=== PATIENT | male | born 1965 | race Caucasian/White ===

== ENCOUNTER 2017-04-13 10:34 | Emergency (ER) | payer OTHER ==
--- NOTE | 2017-04-13 10:48 | DR.GENAD ---
HPI - HPI Comment HPI Comment: PATIENT NOT SLEEPING WELL. DEPRESS. NO FEVER OR CHEST PAIN. DENIES NAUSEA, VOMITING OR DYSURIA. - Complaint/Symptoms Chief Complaint Doctors Comments: NEED HELP. NOT TAKING MEDICATION FOR BIPOLAR DISORDER. HAVING DELUSIONS AND PARANOIA. HE IS AGGITATED. NO SUICIDAL IDEATION. - Nurses notes reviewed Nurses Notes Review: Yes - Source History Provided: Patient, Law Enforcement - Mode of Arrival Mode of Arrival: Wheelchair - Timing Came on: Gradually - Duration Duration: Constant Duration: Days - Severity Severity: Moderate PMH - PMH Past Medical History: Anxiety, Depression, Schizophrenia Past Surgical History: Yes Surgical History: Cholecystectomy, Ortho Surgery - Family History Family Medical History: Hypertension - Social History Do you use any recreational Drugs:: No ROS - Review of Systems Constitutional: No Symptoms Reported Eyes: No Symptoms Reported ENTM: No Symptoms Reported Respiratoy: No Symptoms Reported Cardiovascular: No Symptoms Reported Gastrointestinal/Abdominal: No Symptoms Reported Genitourinary: No Symptoms Reported Neurological: No Symptoms Reported Musculoskeletal: No Symptoms Reported Integumentary: No Symptoms Reported Hematologic/Lymphatic: No Symptoms Reported Endocrine: No Symptoms Reported Psychiatric: Depression, Other (DELUTIONS, PARANOIA.) All Other Systems: Reviewed and Negative PE - Vital Signs Vitals: Temperature 98.9 F Pulse Rate 100 Respiratory Rate 16 Blood Pressure [Right Radial 144/90 Artery] Blood Pressure 147/63 O2 Sat by Pulse Oximetry 99 - General Limitations: No Limitations General Appearance: Alert - Head Head Exam: Normal Inspection - Eyes Eye exam: Normal Appearance - ENT ENT Exam: Normal External Ear Exam External Ear Exam: Normal External Inspection TM/Canal Exam: Bilateral Normal Nose Exam: Normal Nose Exam Mouth Exam: Normal Inspection Throat Exam: Normal Inspection - Neck Neck Exam: Trachea Midline - Chest Chest Inspection: Symmetric Chest Wall Rise - Respiratory Respiratory Exam: Normal Lung Sounds Bilat Respiratory Exam: Bilateral Clear to Auscultation - Cardiovascular Cardiovascular Exam: Regular Rate, Normal Rhythm, Normal Heart Sounds - Abdominal Exam Abdominal Exam: Normal Bowel Sounds, Soft. negative: Tenderness - Extremities Extremities Exam: Normal Inspection - Back Back Exam: Normal Inspection - Neurologic Neurological Exam: Alert, Oriented X3 - Psychiatric Psychiatric Exam: Anxious, Other (DELUTION, PARAOIA) - Skin Skin Exam: Normal Color MDM - Differential Diagnosis Differential Diagnosis: DELUTIONS, PARANOIA, BIPOLAR DISORDE Course - Treatment Treatment: SEE MAU. - Consultation Consultation Comments: PATIENT ACCEPTED FOR TRANSFER BY [facility] [place]. - Education/Counseling Education/Counseling: Patient ROR - Labs Reviewed Laboratory Results Reviewed?: Yes Result Diagrams: 04/13/17 11:00 04/13/17 11:00 Laboratory: WBC 12.2 X10^3/uL (3.6-10.0) H 04/13/17 11:00 RBC 4.61 X10^6/uL (4.7-6.0) L 04/13/17 11:00 Hgb 14.0 g/dL (13.5-18.0) 04/13/17 11:00 Hct 41.5 % (42.0-54.0) L 04/13/17 11:00 MCV 90.0 fL (80.0-100.0) 04/13/17 11:00 MCH 30.4 pg (27.0-34.0) 04/13/17 11:00 MCHC 33.8 g/dL (33.0-35.0) 04/13/17 11:00 RDW 14.6 % (11.6-16.5) 04/13/17 11:00 Plt Count 233 X10^3/uL (150.0-450.0) 04/13/17 11:00 MPV 8.5 fL (7.4-11.0) 04/13/17 11:00 Neut % 82.0 % (42.0-75.0) H 04/13/17 11:00 Lymph % 8.9 % (21.0-51.0) L 04/13/17 11:00 [place] % 8.3 % (0.0-13.0) 04/13/17 11:00 Eos % 0.3 % (0.9-2.9) L 04/13/17 11:00 Baso % 0.5 % (0.2-1.0) 04/13/17 11:00 Neut # 10.0 x10^3/uL (2.2-4.8) H 04/13/17 11:00 Lymph # 1.1 X10^3/uL (1.3-2.9) L 04/13/17 11:00 [place]er # 1.0 x10^3/uL (0.3-0.8) H 04/13/17 11:00 Eos # 0.0 x10^3/uL (0.0-0.2) 04/13/17 11:00 Baso # 0.1 X10^3/uL (0.0-0.1) 04/13/17 11:00 Absolute Nucleated RBC 0.0 /100WBC 04/13/17 11:00 Sodium 145 mmol/L (136-145) 04/13/17 11:00 Corrected Sodium TNP 04/13/17 11:00 Potassium 4.2 mmol/L (3.5-5.1) 04/13/17 11:00 Chloride 108 mmol/L (98-107) H 04/13/17 11:00 Carbon Dioxide 24.9 mmol/L (21-32) 04/13/17 11:00 BUN 29 mg/dL (7-18) H 04/13/17 11:00 Creatinine 1.25 mg/dL (0.70-1.30) 04/13/17 11:00 Est GFR (MDRD) Af Amer > 60 (>60) 04/13/17 11:00 Est GFR (MDRD) Non-Af > 60 (>60) 04/13/17 11:00 Glucose 65 mg/dL (65-99) 04/13/17 11:00 Calcium 8.7 mg/dL (8.5-10.1) 04/13/17 11:00 Corrected Calcium TNP 04/13/17 11:00 Total Bilirubin 1.10 mg/dL (0.2-1.0) H 04/13/17 11:00 AST 167 Units/L (15-37) H 04/13/17 11:00 ALT 122 Units/L (12-78) H 04/13/17 11:00 Alkaline Phosphatase 67 Units/L (46-116) 04/13/17 11:00 Total Protein 6.9 g/dL (6.4-8.2) 04/13/17 11:00 Albumin 3.8 g/dL (3.4-5.0) 04/13/17 11:00 Globulin 3.1 g/dL (2.5-4.5) 04/13/17 11:00 Albumin/Globulin Ratio 1.2 Ratio (1.1-2.1) 04/13/17 11:00 Specimen Type Clean catch urine 04/13/17 11:22 Urine Color Yellow (YELLOW) 04/13/17 11:22 Urine Appearance Clear (CLEAR) 04/13/17 11:22 Urine pH 5.0 (5.0 - 8.0) 04/13/17 11:22 Ur Specific [place] 1.025 (1.000-1.030) 04/13/17 11:22 Urine Protein 2+ (NEGATIVE) 04/13/17 11:22 Urine Glucose (UA) 1+ (NEGATIVE) 04/13/17 11:22 Urine Ketones 4+ (NEGATIVE) 04/13/17 11:22 Urine Occult Blood 2+ (NEGATIVE) 04/13/17 11:22 Urine Nitrite Negative (NEGATIVE) 04/13/17 11:22 Urine Bilirubin Negative (NEGATIVE) 04/13/17 11:22 Urine Urobilinogen Normal (NORMAL) 04/13/17 11:22 Ur Leukocyte Esterase Negative (NEGATIVE) 04/13/17 11:22 Urine RBC 0-3 /HPF (NEGATIVE) 04/13/17 11:22 Urine WBC 0-3 /HPF (NEGATIVE) 04/13/17 11:22 Ur Squamous Epith Cells Few /HPF (NEGATIVE) 04/13/17 11:22 Urine Bacteria Trace /HPF (NEGATIVE) 04/13/17 11:22 Hyaline Casts Few /LPF (NEGATIVE) 04/13/17 11:22 Urine Mucus Few /HPF (NEGATIVE) 04/13/17 11:22 Ur Culture Indicated? No/not indicated 04/13/17 11:22 Salicylates < 2.8 mg/dL (2.8-20) L 04/13/17 11:00 Urine Opiates Screen Negative (NEG=<300) 04/13/17 11:22 Urine Methadone Screen Negative (NEG=<300) 04/13/17 11:22 Acetaminophen 1.3 ug/mL (10-30) L 04/13/17 11:00 Ur Barbiturates Screen Negative (NEG=<200) 04/13/17 11:22 Ur Phencyclidine Scrn Negative (NEG=<25) 04/13/17 11:22 Ur Amphetamines Screen Negative (NEG=<1000) 04/13/17 11:22 U Benzodiazepines Scrn Negative (NEG=<200) 04/13/17 11:22 Urine Cocaine Screen Negative (NEG=<300) 04/13/17 11:22 U Marijuana (THC) Screen Negative (NEG=<50) 04/13/17 11:22 Ethyl Alcohol mg/dL < 3 mg/dL (0-19.9) 04/13/17 11:00 - EKG Rhythm: NSR (EKG NOTED.) - Diagnosis Discharge Problem: Bipolar 1 disorder, depressed, severe, Delusion, Paranoia - Discharge Plan Disposition: 02 XFER [facility] Condition: Stable - Follow ups/Referrals Follow ups/Referrals: NFD,None [Primary Care Provider] - 3 days - Instructions
[2017-04-13 10:52] VITALS: BP 147/63; BMI 33.2
[2017-04-13 11:06] LABS: BASOPHILS # (AUTO) 0.1 X10^3/uL (0.0-0.1); BASOPHILS % (AUTO) 0.5 % (0.2-1.0); EOSINOPHILS % (AUTO) 0.3 % (0.9-2.9); HEMATOCRIT 41.5 % (42.0-54.0); LYMPHOCYTES # (AUTO) 1.1 X10^3/uL (1.3-2.9); LYMPHOCYTES % (AUTO) 8.9 % (21.0-51.0); MEAN CORPUSCULAR HEMOGLOBIN 30.4 pg (27.0-34.0); MEAN CORPUSCULAR HGB CONC 33.8 g/dL (33.0-35.0); MEAN PLATELET VOLUME 8.5 fL (7.4-11.0); MONOCYTES % (AUTO) 8.3 % (0.0-13.0); PLATELET COUNT 233 X10^3/uL (150.0-450.0); RED BLOOD COUNT 4.61 X10^6/uL (4.7-6.0); RED CELL DISTRIBUTION WIDTH 14.6 % (11.6-16.5); WHITE BLOOD COUNT 12.2 X10^3/uL (3.6-10.0)
[2017-04-13 11:22] LABS: ALANINE AMINOTRANSFERASE 122 Units/L (12-78); ALBUMIN 3.8 g/dL (3.4-5.0); ALKALINE PHOSPHATASE 67 Units/L (46-116); ASPARTATE AMINO TRANSFERASE 167 Units/L (15-37); BLOOD ALCOHOL < 3 mg/dL (0-19.9); BLOOD UREA NITROGEN 29 mg/dL (7-18); CALCIUM 8.7 mg/dL (8.5-10.1); CARBON DIOXIDE 24.9 mmol/L (21-32); CHLORIDE 108 mmol/L (98-107); CREATININE 1.25 mg/dL (0.70-1.30); GLUCOSE 65 mg/dL (65-99); SODIUM 145 mmol/L (136-145); TOTAL PROTEIN 6.9 g/dL (6.4-8.2); eGFR BLACK RACES > 60 (>60); eGFR NON BLACK RACES > 60 (>60)
[2017-04-13 11:37] LABS: BILIRUBIN,URINE NEGATIVE (NEGATIVE); BLOOD/HEMOGLOBIN,URINE 2+ (NEGATIVE); GLUCOSE, URINE 1+ (NEGATIVE); KETONES,URINE 4+ (NEGATIVE); LEUKOCYTE ESTERASE ,URINE NEGATIVE (NEGATIVE); NITRITES,URINE NEGATIVE (NEGATIVE); PROTEIN,URINE 2+ (NEGATIVE); UROBILINOGEN,URINE NORMAL (NORMAL)
[2017-04-13 11:43] LABS: ACETAMINOPHEN 1.3 ug/mL (10-30); SALICYLATE < 2.8 mg/dL (2.8-20)
[2017-04-13 11:44] LABS: APPEARANCE,URINE CLEAR (CLEAR); BACTERIA,URINE TRACE /HPF (NEGATIVE); COLOR,URINE YELLOW (YELLOW); RBC,URINE 0-3 /HPF (NEGATIVE); SQUAMOUS EPITHELIAL CELL,UR FEW /HPF (NEGATIVE)
[2017-04-13 11:45] LABS: HYALINE CASTS, URINE FEW /LPF (NEGATIVE); MUCUS,URINE FEW /HPF (NEGATIVE)
[2017-04-14] MEDS ORDERED: NICODERM PATCH 21 MG/24 HR TD SCH (09:00)
== END 2017-04-13 14:24 | disposition short-term general hospital (02) ==
LOC: ER 10:37
DX: F31.89 Other bipolar disorder (principal); F32.2 Major depressive disorder, single episode, severe without psychotic features; F22 Delusional disorders
CPT/HCPCS: 36415; 80053; 80307; 80320; 81001; 85025; 93005; 93010; 99285; G0434; G6038; G6039; G6040

== ENCOUNTER → 2017-05-06 | Outpatient (CLI) | payer OTHER ==
[2017-04-13 10:52] VITALS: BP 147/63
--- NOTE | 2017-05-06 14:48 | VAS ---
HISTORY: Bilateral lower extremity edema. Study: Bilateral lower extremity ultrasound. Comparison: Right lower extremity ultrasound dated January 02, 2014. Head TECHNIQUE: Multiple rao scale and color flow Doppler images of the deep venous system were obtained of the right and left lower extremity. FINDINGS: The deep venous system of the right and left lower extremities were evaluated from the level of the c ommon femoral vein through the popliteal vein. Diminished flow within the mid and distal right super ficial femoral vein. Otherwise, normal color flow and augmentation can be observed. In addition, nor mal compression is seen throughout the deep venous system. IMPRESSION: Diminished flow within the right distal lower extremity as above. However, the bilateral lower extremities are otherwise negative for deep venous thrombosis. If clinically concerned, conside r repeating right lower extremity ultrasound in 3-5 days. Reported By:
== END | disposition home or self-care (01) | DRG 948 ==
LOC: RAD 12:37
PROVIDERS: ATTEND Obstetrics & Gynecology Obstetrics
DX: R60.0 Localized edema (principal)
CPT/HCPCS: 93970

== ENCOUNTER 2017-05-08 09:12 | Emergency (ER) | payer OTHER ==
[2017-05-08 09:21] VITALS: BMI 32.6
--- NOTE | 2017-05-08 09:37 | DR.GENAD ---
HPI - HPI Comment HPI Comment: PATIENT IS TAKING HIS MEDICATIONS. HE IS HAVING FLIGHT OF IDEAS AND IS PANOID. HE IS HAVING DELUTIONS. NO FEVER, PAIN OR URI SYMTOMS. DENIES SUICIDAL OR HOMICIDAL IDEATIONS. - Complaint/Symptoms Chief Complaint Doctors Comments: PATIENT IS PARANOID AT HOME. - Nurses notes reviewed Nurses Notes Review: Yes - Source History Provided: Patient, Law Enforcement - Mode of Arrival Mode of Arrival: Ambulatory - Timing Came on: Suddenly - Duration Duration: Constant Duration: Days - Severity Severity: Moderate PMH - PMH Past Medical History: Anxiety, Depression, Schizophrenia Past Surgical History: Yes Surgical History: Cholecystectomy, Ortho Surgery - Family History Family Medical History: Hypertension - Social History Do you use any recreational Drugs:: No ROS - Review of Systems Constitutional: No Symptoms Reported. negative: Chills, Fever Eyes: No Symptoms Reported. negative: Eye Pain, Discharge ENTM: No Symptoms Reported, Nose Congestion. negative: Ear Pain, Nose Discharge , Throat Pain Respiratoy: No Symptoms Reported. negative: Productive Cough, Non-Productive Cough, Short of Breath, Wheezing Cardiovascular: Edema (RT LED SWELLING) Gastrointestinal/Abdominal: No Symptoms Reported. negative: Abdominal Pain, Nausea, Vomiting Genitourinary: No Symptoms Reported Neurological: No Symptoms Reported Musculoskeletal: Right, Leg Integumentary: Change in Color Hematologic/Lymphatic: No Symptoms Reported Endocrine: No Symptoms Reported Psychiatric: Other (paranoia) All Other Systems: Reviewed and Negative PE - Vital Signs Vitals: Temperature 98.7 F Pulse Rate [Right Brachial] 93 Pulse Rate 111 Respiratory Rate 16 Blood Pressure [Right Radial 155/88 Artery] Blood Pressure 138/71 O2 Sat by Pulse Oximetry 100 - General Limitations: No Limitations General Appearance: Alert - Head Head Exam: Normal Inspection - Eyes Eye exam: Normal Appearance - ENT ENT Exam: Normal External Ear Exam External Ear Exam: Normal External Inspection TM/Canal Exam: Bilateral Normal Nose Exam: Normal Nose Exam Mouth Exam: Normal Inspection Throat Exam: Normal Inspection - Neck Neck Exam: Trachea Midline - Chest Chest Inspection: Symmetric Chest Wall Rise - Respiratory Respiratory Exam: Normal Lung Sounds Bilat Respiratory Exam: Bilateral Clear to Auscultation - Cardiovascular Cardiovascular Exam: Regular Rate, Normal Rhythm, Normal Heart Sounds - Abdominal Exam Abdominal Exam: Normal Bowel Sounds, Soft. negative: Tenderness - Extremities Extremities Exam: Tenderness (RIGHT LEG SLIGHTLY SWOLLEN AND RED.) - Back Back Exam: Normal Inspection - Neurologic Neurological Exam: Alert, Oriented X3, CN II-XII Intact, Normal Gait, Reflexes Normal, Other (paranoia). negative: Motor Sensory Deficit - Psychiatric Psychiatric Exam: Anxious - Skin Skin Exam: Erythema (LEFT LEG WITH SWELLING.) MDM - Differential Diagnosis Differential Diagnosis: PARANOID SCHIZOPHRENIA, LEFT LEG CELLULITIS Course - Treatment Treatment: SEE ORDERS - Consultation Consultation Comments: PATIENT ACCEPTED FOR TRANSFER BY [facility]. - Education/Counseling Education/Counseling: Patient Educated On: Diagnosis ROR - Labs Reviewed Laboratory Results Reviewed?: Yes Result Diagrams: 05/08/17 09:37 05/08/17 09:37 Laboratory: WBC 5.0 X10^3/uL (3.6-10.0) 05/08/17 09:37 RBC 4.29 X10^6/uL (4.7-6.0) L 05/08/17 09:37 Hgb 13.2 g/dL (13.5-18.0) L 05/08/17 09:37 Hct 39.0 % (42.0-54.0) L 05/08/17 09:37 MCV 90.8 fL (80.0-100.0) 05/08/17 09:37 MCH 30.8 pg (27.0-34.0) 05/08/17 09:37 MCHC 34.0 g/dL (33.0-35.0) 05/08/17 09:37 RDW 15.1 % (11.6-16.5) 05/08/17 09:37 Plt Count 176 X10^3/uL (150.0-450.0) 05/08/17 09:37 MPV 8.5 fL (7.4-11.0) 05/08/17 09:37 Neut % 62.4 % (42.0-75.0) 05/08/17 09:37 Lymph % 18.8 % (21.0-51.0) L 05/08/17 09:37 Price % 14.6 % (0.0-13.0) H 05/08/17 09:37 Eos % 3.3 % (0.9-2.9) H 05/08/17 09:37 Baso % 0.9 % (0.2-1.0) 05/08/17 09:37 Neut # 3.1 x10^3/uL (2.2-4.8) 05/08/17 09:37 Lymph # 0.9 X10^3/uL (1.3-2.9) L 05/08/17 09:37 Price # 0.7 x10^3/uL (0.3-0.8) 05/08/17 09:37 Eos # 0.2 x10^3/uL (0.0-0.2) 05/08/17 09:37 Baso # 0.0 X10^3/uL (0.0-0.1) 05/08/17 09:37 Absolute Nucleated RBC 0.0 /100WBC 05/08/17 09:37 D-Dimer 219 ng/mL (0-400) 05/08/17 09:37 Sodium 139 mmol/L (136-145) 05/08/17 09:37 Corrected Sodium TNP 05/08/17 09:37 Potassium 4.1 mmol/L (3.5-5.1) 05/08/17 09:37 Chloride 107 mmol/L (98-107) 05/08/17 09:37 Carbon Dioxide 23.6 mmol/L (21-32) 05/08/17 09:37 BUN 15 mg/dL (7-18) 05/08/17 09:37 Creatinine 1.02 mg/dL (0.70-1.30) 05/08/17 09:37 Est GFR (MDRD) Af Amer > 60 (>60) 05/08/17 09:37 Est GFR (MDRD) Non-Af > 60 (>60) 05/08/17 09:37 Glucose 98 mg/dL (65-99) 05/08/17 09:37 Calcium 9.3 mg/dL (8.5-10.1) 05/08/17 09:37 Corrected Calcium TNP 05/08/17 09:37 Total Bilirubin 0.30 mg/dL (0.2-1.0) 05/08/17 09:37 AST 22 Units/L (15-37) 05/08/17 09:37 ALT 32 Units/L (12-78) 05/08/17 09:37 Alkaline Phosphatase 74 Units/L (46-116) 05/08/17 09:37 Total Protein 6.7 g/dL (6.4-8.2) 05/08/17 09:37 Albumin 3.5 g/dL (3.4-5.0) 05/08/17 09:37 Globulin 3.2 g/dL (2.5-4.5) 05/08/17 09:37 Albumin/Globulin Ratio 1.1 Ratio (1.1-2.1) 05/08/17 09:37 Specimen Type Clean catch urine 05/08/17 09:57 Urine Color Yellow (YELLOW) 05/08/17 09:57 Urine Appearance Clear (CLEAR) 05/08/17 09:57 Urine pH 6.0 (5.0 - 8.0) 05/08/17 09:57 Ur Specific [place] 1.025 (1.000-1.030) 05/08/17 09:57 Urine Protein 1+ (NEGATIVE) 05/08/17 09:57 Urine Glucose (UA) 1+ (NEGATIVE) 05/08/17 09:57 Urine Ketones Negative (NEGATIVE) 05/08/17 09:57 Urine Occult Blood 1+ (NEGATIVE) 05/08/17 09:57 Urine Nitrite Negative (NEGATIVE) 05/08/17 09:57 Urine Bilirubin Negative (NEGATIVE) 05/08/17 09:57 Urine Urobilinogen Normal (NORMAL) 05/08/17 09:57 Ur Leukocyte Esterase 1+ (NEGATIVE) 05/08/17 09:57 Urine RBC 0 - 3 /HPF (NEGATIVE) 05/08/17 09:57 Urine WBC 0 - 3 /HPF (NEGATIVE) 05/08/17 09:57 Ur Squamous Epith Cells Rare /HPF (NEGATIVE) 05/08/17 09:57 Amorphous Sediment 1+ /HPF (NEGATIVE) 05/08/17 09:57 Urine Bacteria Negative /HPF (NEGATIVE) 05/08/17 09:57 Urine Mucus Moderate /HPF (NEGATIVE) 05/08/17 09:57 Ur Culture Indicated? No/not indicated 05/08/17 09:57 Salicylates 3.2 mg/dL (2.8-20) 05/08/17 09:37 Urine Opiates Screen Negative (NEG=<300) 05/08/17 09:57 Urine Methadone Screen Negative (NEG=<300) 05/08/17 09:57 Acetaminophen 0.0 ug/mL (10-30) L 05/08/17 09:37 Ur Barbiturates Screen Negative (NEG=<200) 05/08/17 09:57 Ur Phencyclidine Scrn Negative (NEG=<25) 05/08/17 09:57 Ur Amphetamines Screen Negative (NEG=<1000) 05/08/17 09:57 U Benzodiazepines Scrn Negative (NEG=<200) 05/08/17 09:57 Urine Cocaine Screen Negative (NEG=<300) 05/08/17 09:57 U Marijuana (THC) Screen Negative (NEG=<50) 05/08/17 09:57 Ethyl Alcohol mg/dL < 3 mg/dL (0-19.9) 05/08/17 09:37 - EKG Rhythm: NSR (EKG NOTED) - Diagnosis Discharge Problem: Paranoid schizophrenia, Cellulitis of right leg, Paranoid delusion - Discharge Plan Disposition: 65 XFER [facility] Condition: Stable - Follow ups/Referrals Follow ups/Referrals: NFD,None [Primary Care Provider] - 3 days - Instructions Instructions: Paranoia, Schizophrenia, Cellulitis, Adult, [id number] Additional Instructions: TO [facility] FOR FURTHER EVALUATION
[2017-05-08 09:48] LABS: BASOPHILS % (AUTO) 0.9 % (0.2-1.0); EOSINOPHILS # (AUTO) 0.2 x10^3/uL (0.0-0.2); EOSINOPHILS % (AUTO) 3.3 % (0.9-2.9); HEMOGLOBIN 13.2 g/dL (13.5-18.0); LYMPHOCYTES # (AUTO) 0.9 X10^3/uL (1.3-2.9); LYMPHOCYTES % (AUTO) 18.8 % (21.0-51.0); MEAN CORPUSCULAR HEMOGLOBIN 30.8 pg (27.0-34.0); MEAN CORPUSCULAR VOLUME 90.8 fL (80.0-100.0); MEAN PLATELET VOLUME 8.5 fL (7.4-11.0); MONOCYTES # (AUTO) 0.7 x10^3/uL (0.3-0.8); MONOCYTES % (AUTO) 14.6 % (0.0-13.0); NEUTROPHILS # (AUTO) 3.1 x10^3/uL (2.2-4.8); NEUTROPHILS % (AUTO) 62.4 % (42.0-75.0); PLATELET COUNT 176 X10^3/uL (150.0-450.0); RED BLOOD COUNT 4.29 X10^6/uL (4.7-6.0); RED CELL DISTRIBUTION WIDTH 15.1 % (11.6-16.5)
[2017-05-08 10:00] LABS: SALICYLATE 3.2 mg/dL (2.8-20)
[2017-05-08 10:05] LABS: ALANINE AMINOTRANSFERASE 32 Units/L (12-78); ALBUMIN 3.5 g/dL (3.4-5.0); ALKALINE PHOSPHATASE 74 Units/L (46-116); ASPARTATE AMINO TRANSFERASE 22 Units/L (15-37); BLOOD ALCOHOL < 3 mg/dL (0-19.9); BLOOD UREA NITROGEN 15 mg/dL (7-18); CALCIUM 9.3 mg/dL (8.5-10.1); CARBON DIOXIDE 23.6 mmol/L (21-32); CHLORIDE 107 mmol/L (98-107); CREATININE 1.02 mg/dL (0.70-1.30); SODIUM 139 mmol/L (136-145); TOTAL PROTEIN 6.7 g/dL (6.4-8.2); eGFR BLACK RACES > 60 (>60); eGFR NON BLACK RACES > 60 (>60)
[2017-05-08 10:36] LABS: BILIRUBIN,URINE NEGATIVE (NEGATIVE); BLOOD/HEMOGLOBIN,URINE 1+ (NEGATIVE); GLUCOSE, URINE 1+ (NEGATIVE); KETONES,URINE NEGATIVE (NEGATIVE); LEUKOCYTE ESTERASE ,URINE 1+ (NEGATIVE); NITRITES,URINE NEGATIVE (NEGATIVE); PROTEIN,URINE 1+ (NEGATIVE); UROBILINOGEN,URINE NORMAL (NORMAL)
[2017-05-08 10:39] LABS: APPEARANCE,URINE CLEAR (CLEAR); BACTERIA,URINE NEGATIVE /HPF (NEGATIVE); COLOR,URINE YELLOW (YELLOW); RBC,URINE 0 - 3 /HPF (NEGATIVE); SQUAMOUS EPITHELIAL CELL,UR RARE /HPF (NEGATIVE)
[2017-05-08 10:40] LABS: AMORPHOUS SEDIMENT,UR 1+ /HPF (NEGATIVE); MUCUS,URINE MODERATE /HPF (NEGATIVE)
[2017-05-08 14:02] VITALS: BP 155/88
[2017-05-08] MEDS ORDERED: MOTRIN TAB 600 MG PO ONE ×2 (14:50→14:52)
[2017-05-08] MEDS ORDERED: VIBRAMYCIN PO ONE ×2 (15:05→15:07)
[2017-05-08] MEDS ORDERED: HALDOL INJ IM ONE (15:10)
[2017-05-08] MEDS ORDERED: HALDOL INJ ONE (15:11)
== END 2017-05-08 15:58 ==
LOC: ER 09:23
DX: F20.0 Paranoid schizophrenia (principal); L03.115 Cellulitis of right lower limb; F22 Delusional disorders
CPT/HCPCS: 36415; 80053; 80307; 80320; 81001; 85025; 85378; 93005; 93010; 96372; 99285; G0434; G6038; G6039; G6040; J1630

== ENCOUNTER 2017-05-30 14:38 | Emergency (ER) | payer OTHER ==
[2017-05-30 14:46] VITALS: BP 134/93; BMI 33.2
[2017-05-30] MEDS ORDERED: HALDOL ONE (15:18)
[2017-05-30] MEDS ORDERED: HALDOL PO ONE ×2 (15:21→15:22)
[2017-05-30 15:27] LABS: BASOPHILS # (AUTO) 0.2 X10^3/uL (0.0-0.1); BASOPHILS % (AUTO) 1.8 % (0.2-1.0); EOSINOPHILS # (AUTO) 0.2 x10^3/uL (0.0-0.2); EOSINOPHILS % (AUTO) 1.9 % (0.9-2.9); HEMOGLOBIN 14.3 g/dL (13.5-18.0); LYMPHOCYTES % (AUTO) 17.4 % (21.0-51.0); MEAN CORPUSCULAR HEMOGLOBIN 31.1 pg (27.0-34.0); MEAN CORPUSCULAR VOLUME 91.4 fL (80.0-100.0); MEAN PLATELET VOLUME 9.2 fL (7.4-11.0); MONOCYTES # (AUTO) 0.9 x10^3/uL (0.3-0.8); MONOCYTES % (AUTO) 8.3 % (0.0-13.0); NEUTROPHILS % (AUTO) 70.6 % (42.0-75.0); PLATELET COUNT 206 X10^3/uL (150.0-450.0); RED CELL DISTRIBUTION WIDTH 15.5 % (11.6-16.5); WHITE BLOOD COUNT 11.3 X10^3/uL (3.6-10.0)
--- NOTE | 2017-05-30 15:37 | DR.GENAD ---
HPI - Complaint/Symptoms Chief Complaint Doctors Comments: Patient presented to the ED for medical clearance due flight of idears but non homocidal and non suicidal. Chief Complaint:: [place] .... PT WAS F[place] AND TOLD [facility] TO TRANSPORT PT TO ED FOR MENTAL HEALTH .. Self Treatment fo Chief Complaint: PT IS SHAKING .. AND HE TOLD EMS HE WANTS TO GO TO [place],,, PT DENIES HEARING OR SEEING THINGS, PT DENIES HOMICIDAL OR SUICIDAL IDEATIONS ,,,,, - Source History Provided: Patient, Law Enforcement - Mode of Arrival Mode of Arrival: Ambulatory - Timing Onset of Chief Complaint: 05/30/17 PMH - PMH Past Medical History: Yes Past Medical History: Anxiety, Depression, Schizophrenia Past Surgical History: Yes Surgical History: Cholecystectomy, Ortho Surgery - Family History History of Family Medical Conditions: Yes Family Medical History: Hypertension - Social History Does patient currently use any type of tobacco product: No Have you used tobacco products in the last 12 months: No Type of Tobacco Use: None Does any household member use tobacco: No Alcohol Use: None Do you use any recreational Drugs:: No Lives With: Family Lives Where: Home - infectious screening In the last 2 months have you had wt loss of >10#?: NO Have you had fever, night sweats or hemotysis?: No Have you traveled outside the country in the last 6 months?: No Isolation: Standard PE - Vital Signs Vitals: Temperature 98.7 F Pulse Rate 111 Respiratory Rate 18 Blood Pressure [Right Radial 155/88 Artery] Blood Pressure 134/93 O2 Sat by Pulse Oximetry 100 ROR - Labs Reviewed Result Diagrams: 05/30/17 15:08 05/30/17 15:08 Laboratory: WBC 11.3 X10^3/uL (3.6-10.0) H 05/30/17 15:08 RBC 4.60 X10^6/uL (4.7-6.0) L 05/30/17 15:08 Hgb 14.3 g/dL (13.5-18.0) 05/30/17 15:08 Hct 42.0 % (42.0-54.0) 05/30/17 15:08 MCV 91.4 fL (80.0-100.0) 05/30/17 15:08 MCH 31.1 pg (27.0-34.0) 05/30/17 15:08 MCHC 34.0 g/dL (33.0-35.0) 05/30/17 15:08 RDW 15.5 % (11.6-16.5) 05/30/17 15:08 Plt Count 206 X10^3/uL (150.0-450.0) 05/30/17 15:08 MPV 9.2 fL (7.4-11.0) 05/30/17 15:08 Neut % 70.6 % (42.0-75.0) 05/30/17 15:08 Lymph % 17.4 % (21.0-51.0) L 05/30/17 15:08 [place] % 8.3 % (0.0-13.0) 05/30/17 15:08 Eos % 1.9 % (0.9-2.9) 05/30/17 15:08 Baso % 1.8 % (0.2-1.0) H 05/30/17 15:08 Neut # 8.0 x10^3/uL (2.2-4.8) H 05/30/17 15:08 Lymph # 2.0 X10^3/uL (1.3-2.9) 05/30/17 15:08 [place] # 0.9 x10^3/uL (0.3-0.8) H 05/30/17 15:08 Eos # 0.2 x10^3/uL (0.0-0.2) 05/30/17 15:08 Baso # 0.2 X10^3/uL (0.0-0.1) H 05/30/17 15:08 Absolute Nucleated RBC 0.1 /100WBC 05/30/17 15:08 Sodium 140 mmol/L (136-145) 05/30/17 15:08 Corrected Sodium TNP 05/30/17 15:08 Potassium 4.1 mmol/L (3.5-5.1) 05/30/17 15:08 Chloride 104 mmol/L (98-107) 05/30/17 15:08 Carbon Dioxide 24.7 mmol/L (21-32) 05/30/17 15:08 BUN 15 mg/dL (7-18) 05/30/17 15:08 Creatinine 1.08 mg/dL (0.70-1.30) 05/30/17 15:08 Est GFR (MDRD) Af Amer > 60 (>60) 05/30/17 15:08 Est GFR (MDRD) Non-Af > 60 (>60) 05/30/17 15:08 Glucose 94 mg/dL (65-99) 05/30/17 15:08 Calcium 9.1 mg/dL (8.5-10.1) 05/30/17 15:08 Corrected Calcium TNP 05/30/17 15:08 Total Bilirubin 0.60 mg/dL (0.2-1.0) 05/30/17 15:08 AST 26 Units/L (15-37) 05/30/17 15:08 ALT 48 Units/L (12-78) 05/30/17 15:08 Alkaline Phosphatase 69 Units/L (46-116) 05/30/17 15:08 Total Protein 7.1 g/dL (6.4-8.2) 05/30/17 15:08 Albumin 3.8 g/dL (3.4-5.0) 05/30/17 15:08 Globulin 3.3 g/dL (2.5-4.5) 05/30/17 15:08 Albumin/Globulin Ratio 1.2 Ratio (1.1-2.1) 05/30/17 15:08 Specimen Type Clean catch urine 05/30/17 15:41 Urine Color Yellow (YELLOW) 05/30/17 15:41 Urine Appearance Hazy (CLEAR) 05/30/17 15:41 Urine pH 5.0 (5.0 - 8.0) 05/30/17 15:41 Ur Specific [place] 1.020 (1.000-1.030) 05/30/17 15:41 Urine Protein 1+ (NEGATIVE) 05/30/17 15:41 Urine Glucose (UA) Negative (NEGATIVE) 05/30/17 15:41 Urine Ketones 1+ (NEGATIVE) 05/30/17 15:41 Urine Occult Blood Negative (NEGATIVE) 05/30/17 15:41 Urine Nitrite Negative (NEGATIVE) 05/30/17 15:41 Urine Bilirubin Negative (NEGATIVE) 05/30/17 15:41 Urine Urobilinogen 1+ (NORMAL) 05/30/17 15:41 Ur Leukocyte Esterase 1+ (NEGATIVE) 05/30/17 15:41 Urine RBC 0 /HPF (NEGATIVE) 05/30/17 15:41 Urine WBC 0-2 /HPF (NEGATIVE) 05/30/17 15:41 Ur Squamous Epith Cells Negative /HPF (NEGATIVE) 05/30/17 15:41 Urine Bacteria Trace /HPF (NEGATIVE) 05/30/17 15:41 Ur Culture Indicated? No/not indicated 05/30/17 15:41 Salicylates < 2.8 mg/dL (2.8-20) L 05/30/17 15:08 Urine Opiates Screen Negative (NEG=<300) 05/30/17 15:41 Urine Methadone Screen Negative (NEG=<300) 05/30/17 15:41 Acetaminophen 0.0 ug/mL (10-30) L 05/30/17 15:08 Ur Barbiturates Screen Negative (NEG=<200) 05/30/17 15:41 Ur Phencyclidine Scrn Negative (NEG=<25) 05/30/17 15:41 Ur Amphetamines Screen Negative (NEG=<1000) 05/30/17 15:41 U Benzodiazepines Scrn Negative (NEG=<200) 05/30/17 15:41 Urine Cocaine Screen Negative (NEG=<300) 05/30/17 15:41 U Marijuana (THC) Screen Positive (NEG=<50) A 05/30/17 15:41 - Discharge Plan Condition: Stable - Follow ups/Referrals Follow ups/Referrals: NFD,None [Primary Care Provider] - 3 days - Instructions
[2017-05-30 15:41] LABS: ALANINE AMINOTRANSFERASE 48 Units/L (12-78); ALBUMIN 3.8 g/dL (3.4-5.0); ALKALINE PHOSPHATASE 69 Units/L (46-116); ASPARTATE AMINO TRANSFERASE 26 Units/L (15-37); BLOOD UREA NITROGEN 15 mg/dL (7-18); CALCIUM 9.1 mg/dL (8.5-10.1); CARBON DIOXIDE 24.7 mmol/L (21-32); CHLORIDE 104 mmol/L (98-107); CREATININE 1.08 mg/dL (0.70-1.30); SODIUM 140 mmol/L (136-145); TOTAL PROTEIN 7.1 g/dL (6.4-8.2); eGFR BLACK RACES > 60 (>60); eGFR NON BLACK RACES > 60 (>60)
[2017-05-30 15:51] LABS: BILIRUBIN,URINE NEGATIVE (NEGATIVE); BLOOD/HEMOGLOBIN,URINE NEGATIVE (NEGATIVE); GLUCOSE, URINE NEGATIVE (NEGATIVE); KETONES,URINE 1+ (NEGATIVE); LEUKOCYTE ESTERASE ,URINE 1+ (NEGATIVE); NITRITES,URINE NEGATIVE (NEGATIVE); PROTEIN,URINE 1+ (NEGATIVE); UROBILINOGEN,URINE 1+ (NORMAL)
[2017-05-30 15:59] LABS: APPEARANCE,URINE HAZY (CLEAR); BACTERIA,URINE TRACE /HPF (NEGATIVE); COLOR,URINE YELLOW (YELLOW); RBC,URINE 0 /HPF (NEGATIVE); SQUAMOUS EPITHELIAL CELL,UR NEGATIVE /HPF (NEGATIVE)
[2017-05-30 16:06] LABS: SALICYLATE < 2.8 mg/dL (2.8-20)
== END 2017-05-30 22:40 | disposition short-term general hospital (02) ==
LOC: ER 14:59
DX: Z00.8 Encounter for other general examination (principal)
CPT/HCPCS: 36415; 80053; 80307; 81001; 85025; 93005; 93010; 99285; G0434; G6038; G6039

== ENCOUNTER 2017-06-24 10:39 | Emergency (ER) | payer OTHER ==
--- NOTE | 2017-06-24 10:45 | DR.GENAD ---
HPI - Complaint/Symptoms Chief Complaint Doctors Comments: Patient was brought to the ED by a police or patrol park officer. He does not give specific reason as to the need for mental health placement. Patient and dad denies that he is a risk of harm to himself or others. Patient answers questions appropriately. He denies illecit drug abuse or use. He denies alcohol use. PMH - PMH Past Medical History: Anxiety, Depression, Schizophrenia Past Surgical History: Yes Surgical History: Cholecystectomy, Ortho Surgery - Family History Family Medical History: Hypertension - Social History Do you use any recreational Drugs:: No ROS - Review of Systems Eyes: No Symptoms Reported ENTM: No Symptoms Reported Respiratoy: No Symptoms Reported Cardiovascular: No Symptoms Reported Gastrointestinal/Abdominal: No Symptoms Reported Genitourinary: No Symptoms Reported Neurological: No Symptoms Reported Musculoskeletal: No Symptoms Reported Integumentary: No Symptoms Reported Hematologic/Lymphatic: No Symptoms Reported Endocrine: No Symptoms Reported Psychiatric: No Symptoms Reported All Other Systems: Reviewed and Negative PE - Vital Signs Vitals: Temperature 98.6 F Pulse Rate 99 Respiratory Rate 18 Blood Pressure [Right Radial 155/88 Artery] Blood Pressure 159/85 O2 Sat by Pulse Oximetry 100 - General General Appearance: Alert, In No Apparent Distress - Head Head Exam: Normal Inspection, Atraumatic - Eyes Eye exam: Normal Appearance, PERRL, EOMI - ENT ENT Exam: Normal Exam TM/Canal Exam: Bilateral Normal Nose Exam: Normal Nose Exam Mouth Exam: Normal Inspection Throat Exam: Normal Inspection - Neck Neck Exam: Normal Inspection, Full ROM - Chest Chest Inspection: Normal Inspection - Respiratory Respiratory Exam: Normal Lung Sounds Bilat Respiratory Exam: Bilateral Clear to Auscultation - Cardiovascular Cardiovascular Exam: Regular Rate, Normal Rhythm - Abdominal Exam Abdominal Exam: Normal Inspection, Normal Bowel Sounds Abdominal Tenderness: negative: RUQ, RLQ, LUQ, LLQ, Epigastrium, Suprapubic, Diffuse, Mild, Moderate, Severe, Other - Extremities Extremities Exam: Normal Inspection - Back Back Exam: Normal Inspection, Full ROM - Neurologic Neurological Exam: Alert, Oriented X3, CN II-XII Intact - Psychiatric Psychiatric Exam: Normal Affect, Normal Mood - Skin Skin Exam: Warm, Dry, Intact ROR - Labs Reviewed Result Diagrams: 06/24/17 10:49 06/24/17 10:49 Laboratory: WBC 9.9 X10^3/uL (3.6-10.0) 06/24/17 10:49 RBC 4.74 X10^6/uL (4.7-6.0) 06/24/17 10:49 Hgb 15.1 g/dL (13.5-18.0) 06/24/17 10:49 Hct 43.7 % (42.0-54.0) 06/24/17 10:49 MCV 92.1 fL (80.0-100.0) 06/24/17 10:49 MCH 31.9 pg (27.0-34.0) 06/24/17 10:49 MCHC 34.7 g/dL (33.0-35.0) 06/24/17 10:49 RDW 15.4 % (11.6-16.5) 06/24/17 10:49 Plt Count 229 X10^3/uL (150.0-450.0) 06/24/17 10:49 MPV 8.8 fL (7.4-11.0) 06/24/17 10:49 Neut % 55.9 % (42.0-75.0) 06/24/17 10:49 Lymph % 29.3 % (21.0-51.0) 06/24/17 10:49 [place] % 10.3 % (0.0-13.0) 06/24/17 10:49 Eos % 3.6 % (0.9-2.9) H 06/24/17 10:49 Baso % 0.9 % (0.2-1.0) 06/24/17 10:49 Neut # 5.5 x10^3/uL (2.2-4.8) H 06/24/17 10:49 Lymph # 2.9 X10^3/uL (1.3-2.9) 06/24/17 10:49 [place] # 1.0 x10^3/uL (0.3-0.8) H 06/24/17 10:49 Eos # 0.4 x10^3/uL (0.0-0.2) H 06/24/17 10:49 Baso # 0.1 X10^3/uL (0.0-0.1) 06/24/17 10:49 Absolute Nucleated RBC 0.0 /100WBC 06/24/17 10:49 Sodium 140 mmol/L (136-145) 06/24/17 10:49 Corrected Sodium TNP 06/24/17 10:49 Potassium 4.1 mmol/L (3.5-5.1) 06/24/17 10:49 Chloride 105 mmol/L (98-107) 06/24/17 10:49 Carbon Dioxide 26.1 mmol/L (21-32) 06/24/17 10:49 BUN 13 mg/dL (7-18) 06/24/17 10:49 Creatinine 0.96 mg/dL (0.70-1.30) 06/24/17 10:49 Est GFR (MDRD) Af Amer > 60 (>60) 06/24/17 10:49 Est GFR (MDRD) Non-Af > 60 (>60) 06/24/17 10:49 Glucose 91 mg/dL (65-99) 06/24/17 10:49 Calcium 9.1 mg/dL (8.5-10.1) 06/24/17 10:49 Corrected Calcium TNP 06/24/17 10:49 Total Bilirubin 0.60 mg/dL (0.2-1.0) 06/24/17 10:49 AST 56 Units/L (15-37) H 06/24/17 10:49 ALT 91 Units/L (12-78) H 06/24/17 10:49 Alkaline Phosphatase 70 Units/L (46-116) 06/24/17 10:49 Total Protein 7.2 g/dL (6.4-8.2) 06/24/17 10:49 Albumin 3.7 g/dL (3.4-5.0) 06/24/17 10:49 Globulin 3.5 g/dL (2.5-4.5) 06/24/17 10:49 Albumin/Globulin Ratio 1.1 Ratio (1.1-2.1) 06/24/17 10:49 Salicylates 4.4 mg/dL (2.8-20) 06/24/17 10:49 Acetaminophen 0.0 ug/mL (10-30) L 06/24/17 10:49 Ethyl Alcohol mg/dL < 3 mg/dL (0-19.9) 06/24/17 10:49 - Diagnosis Discharge Problem: Bipolar disorder Qualifiers: Active/Remission status: in remission of unspecified degree Qualified Code(s): F31.70 - Bipolar disorder, currently in remission, most recent episode unspecified - Discharge Plan Condition: Stable - Follow ups/Referrals Follow ups/Referrals: MARIA LUZ ALAMO [Primary Care Provider] - 3 days - Instructions
[2017-06-24 10:53] VITALS: BP 159/85; BMI 31.0
[2017-06-24 11:06] LABS: BASOPHILS # (AUTO) 0.1 X10^3/uL (0.0-0.1); BASOPHILS % (AUTO) 0.9 % (0.2-1.0); EOSINOPHILS # (AUTO) 0.4 x10^3/uL (0.0-0.2); EOSINOPHILS % (AUTO) 3.6 % (0.9-2.9); HEMATOCRIT 43.7 % (42.0-54.0); HEMOGLOBIN 15.1 g/dL (13.5-18.0); LYMPHOCYTES # (AUTO) 2.9 X10^3/uL (1.3-2.9); LYMPHOCYTES % (AUTO) 29.3 % (21.0-51.0); MEAN CORPUSCULAR HEMOGLOBIN 31.9 pg (27.0-34.0); MEAN CORPUSCULAR HGB CONC 34.7 g/dL (33.0-35.0); MEAN CORPUSCULAR VOLUME 92.1 fL (80.0-100.0); MEAN PLATELET VOLUME 8.8 fL (7.4-11.0); MONOCYTES % (AUTO) 10.3 % (0.0-13.0); NEUTROPHILS # (AUTO) 5.5 x10^3/uL (2.2-4.8); NEUTROPHILS % (AUTO) 55.9 % (42.0-75.0); PLATELET COUNT 229 X10^3/uL (150.0-450.0); RED BLOOD COUNT 4.74 X10^6/uL (4.7-6.0); RED CELL DISTRIBUTION WIDTH 15.4 % (11.6-16.5); WHITE BLOOD COUNT 9.9 X10^3/uL (3.6-10.0)
[2017-06-24 11:14] LABS: SALICYLATE 4.4 mg/dL (2.8-20)
[2017-06-24 11:15] LABS: ALANINE AMINOTRANSFERASE 91 Units/L (12-78); ALBUMIN 3.7 g/dL (3.4-5.0); ALKALINE PHOSPHATASE 70 Units/L (46-116); ASPARTATE AMINO TRANSFERASE 56 Units/L (15-37); BLOOD ALCOHOL < 3 mg/dL (0-19.9); BLOOD UREA NITROGEN 13 mg/dL (7-18); CALCIUM 9.1 mg/dL (8.5-10.1); CARBON DIOXIDE 26.1 mmol/L (21-32); CHLORIDE 105 mmol/L (98-107); CREATININE 0.96 mg/dL (0.70-1.30); SODIUM 140 mmol/L (136-145); TOTAL PROTEIN 7.2 g/dL (6.4-8.2); eGFR BLACK RACES > 60 (>60); eGFR NON BLACK RACES > 60 (>60)
== END 2017-06-24 12:20 | disposition home or self-care (01) ==
LOC: ER 11:12
DX: F31.70 Bipolar disorder, currently in remission, most recent episode unspecified (principal)
CPT/HCPCS: 36415; 80053; 80307; 80320; 85025; 93005; 93010; 99283; 99285; G6038; G6039; G6040

== ENCOUNTER → 2017-10-12 | Outpatient (CLI) | payer OTHER ==
[2017-10-12 13:14] LABS: BASOPHILS % (AUTO) 0.8 % (0.2-1.0); EOSINOPHILS # (AUTO) 0.3 x10^3/uL (0.0-0.2); HEMATOCRIT 45.7 % (42.0-54.0); HEMOGLOBIN 15.8 g/dL (13.5-18.0); LYMPHOCYTES % (AUTO) 33.5 % (21.0-51.0); MEAN CORPUSCULAR HEMOGLOBIN 32.1 pg (27.0-34.0); MEAN CORPUSCULAR HGB CONC 34.6 g/dL (33.0-35.0); MEAN CORPUSCULAR VOLUME 92.6 fL (80.0-100.0); MEAN PLATELET VOLUME 8.8 fL (7.4-11.0); MONOCYTES # (AUTO) 0.7 x10^3/uL (0.3-0.8); MONOCYTES % (AUTO) 11.7 % (0.0-13.0); PLATELET COUNT 207 X10^3/uL (150.0-450.0); RED BLOOD COUNT 4.94 X10^6/uL (4.7-6.0); RED CELL DISTRIBUTION WIDTH 14.8 % (11.6-16.5)
[2017-10-12 13:23] LABS: VALPROIC ACID 55.3 ug/mL (50-100)
[2017-10-12 13:32] LABS: ALANINE AMINOTRANSFERASE 64 Units/L (12-78); ALBUMIN 3.5 g/dL (3.4-5.0); ALKALINE PHOSPHATASE 61 Units/L (46-116); ASPARTATE AMINO TRANSFERASE 30 Units/L (15-37); BLOOD UREA NITROGEN 15 mg/dL (7-18); CARBON DIOXIDE 25.5 mmol/L (21-32); CHLORIDE 106 mmol/L (98-107); CREATININE 1.01 mg/dL (0.70-1.30); SODIUM 134 mmol/L (136-145); TOTAL PROTEIN 6.9 g/dL (6.4-8.2); TSH (3RD GENERATION) 4.908 uIU/mL (0.358-3.74); eGFR BLACK RACES > 60 (>60); eGFR NON BLACK RACES > 60 (>60)
== END ==
LOC: LAB 12:43
PROVIDERS: ATTEND Nurse Practitioner Family
DX: F25.0 Schizoaffective disorder, bipolar type (principal); Z79.899 Other long term (current) drug therapy
CPT/HCPCS: 36415; 80053; 80164; 84443; 85025